=== PATIENT | male | born 1950 | race Caucasian/White ===

== ENCOUNTER → 2018-01-22 | Outpatient (CLI) | payer SELFPAY ==
--- NOTE | 2018-01-22 16:36 | CT ---
HISTORY: Screening Cardiac calcium scoring. Technique: Multiple axial images of the chest were obtained on a [address] from the aortic arch to the base of the heart with noncontrast prospective gating. AEC was utilized. Findings: A total calcium score of 475 is observed. Extensive calcified atherosclerotic plaque is present with high likelihood of at least 1 significant coronary narrowing. The patient is between the 50 and 75t h percentile for age and sex. There are incidental centrilobular nodules in the left lower lobe and lingula with somewhat of a tree -in-bud appearance which are nonspecific but can be seen in the setting of respiratory bronchiolitis or atypical bronchopneumonia and for which clinical correlation and CT follow-up in 3-6 months is rec ommended. There is probable chronic wedging of several lower thoracic vertebral bodies for which clin ical correlation with acute or subacute back pain is recommended. IMPRESSION: Elevated coronary calcium score and incidental findings as detailed above. Reported By:
== END ==
LOC: RAD 13:51
PROVIDERS: ATTEND Family Medicine
DX: Z13.6 Encounter for screening for cardiovascular disorders (principal)